=== PATIENT | female | born 1960 | race African-American/Black ===

== ENCOUNTER 2017-01-13 16:24 | Emergency (ER) | payer OTHER ==
[~2017-01-13] VITALS: Ht 170.2 cm; Wt 109.0 kg
[~2017-01-13 16:24] MED LIST: ABILIFY10 MG PO; ABILIFY15 MG PO; ADVAIR HFA120 INHALA IH; ADVIL200 MG PO; ALBUTEROL HFA IH; ALBUTEROL1.25 MG/3 IH; AMLODIPINE BESY10 MG PO; APRESOLINE50 MG PO; ASPIR 8181 M1 PO; CHOLESTROL MEDICINE; COLACE100 MG PO; DIGOXIN250 MCG PO; DIOVAN80 MG PO; DOCUSATE SODIU100 MG PO; DUONEB 2.5-0.5 M3 ML IH; Ecotrin PO; FLOVENT 44120 INHALA IH; HYDROCHLOROTHIA25 MG PO; K-DUR20 MEQ PO; LEVAQUIN500 MG PO; LEVOFLOXACIN750 MG PO; MEDROL DOSEPAK4 MG PO; Medrol Dosepak PO; NORCO 5/3251 TABLET PO; NORVASC10 MG PO; Norvasc PO; PERCOCET 5/31 TABLET PO; PRAVASTATIN SOD40 MG PO; PREDNISONE10 M1 PO; PREDNISONE20 MG PO; PREDNISONE5 MG PO; PROAIR HFA8.5 GM IH; PROVENTIL,2.5 MG/3 M IH; SPIRIVA RESPIMAT4 GM IH; VALSARTAN80 MG PO; VENTOLIN HFA18 GM IH; VISTARIL25 MG PO; Vytorin 10/20 PO; ZITHROMAX Z-PA250 MG PO; ZOLOFT100 MG PO; Zithromax PO
[2017-01-13 17:19] LABS: MCHC 32.1 G/DL (30.0-36.0); MCV 81.1 FL (83-99); PLATELET COUNT 191 K/uL (156-360); RBC DIS.WIDTH-CV 15.2 % (11.8-14.6); WHITE BLOOD COUNT 10.5 K/uL (4.1-10.2)
[2017-01-13 17:31] LABS: CHLORIDE 110 mEq/L (99-109); POTASSIUM 3.8 mEq/L (3.7-5.4); SODIUM 139 mEq/L (136-147)
[2017-01-13 17:33] LABS: GLUCOSE 96 mg/dL (70-99)
[2017-01-13 17:34] LABS: ANION GAP 7 MEQ/L (2-14)
[2017-01-13 17:37] LABS: GFR ESTIMATE (CALCULATED) 47 mL/min/; UREA NITROGEN (BUN) 22 mg/dL (9-23)
[2017-01-13] MEDS ORDERED: PREDNISONE50 MG PO (18:19)
[2017-01-13] MEDS ORDERED: ZITHROMAX Z-PA250 MG PO (18:19)
[2017-01-13 19:05] VITALS: BP 129/108
== END 2017-01-13 19:04 | disposition home or self-care (01) ==
LOC: EME 16:24
DX: J44.9 Chronic obstructive pulmonary disease, unspecified (principal); J40 Bronchitis, not specified as acute or chronic; Z85.118 Personal history of other malignant neoplasm of bronchus and lung; I10 Essential (primary) hypertension; Z79.82 Long term (current) use of aspirin; F17.200 Nicotine dependence, unspecified, uncomplicated
CPT/HCPCS: 71020; 80048; 85027; 93005; 94640; 99281; 99284; J7512

== ENCOUNTER 2017-02-07 09:14 | Emergency (ER) | payer OTHER ==
[~2017-02-07] VITALS: Ht 170.2 cm; Wt 118.2 kg
[~2017-02-07 09:14] MED LIST changes: +PREDNISONE50 MG PO
[2017-02-07 10:41] LABS: MCH 26.2 PG (29.0-34.0); MCHC 32.5 G/DL (30.0-36.0); MCV 80.6 FL (83-99); MEAN PLAT.VOLUME 10.5 uM^3 (9.5-12.4); PLATELET COUNT 215 K/uL (156-360); RBC DIS.WIDTH-CV 15.8 % (11.8-14.6); RBC DIS.WIDTH-SD 45.8 % (39-53); RED BLOOD COUNT 4.96 M/uL (3.80-5.20); WHITE BLOOD COUNT 8.4 K/uL (4.1-10.2)
[2017-02-07 10:53] LABS: CHLORIDE 108 mEq/L (99-109); POTASSIUM 3.7 mEq/L (3.7-5.4); SODIUM 142 mEq/L (136-147)
[2017-02-07 10:55] LABS: GLUCOSE 117 mg/dL (70-99)
[2017-02-07 10:56] LABS: ANION GAP 11 MEQ/L (2-14)
[2017-02-07 10:59] LABS: GFR ESTIMATE (CALCULATED) 47 mL/min/
[2017-02-07 11:00] LABS: UREA NITROGEN (BUN) 21 mg/dL (9-23)
[2017-02-07 11:07] LABS: TROP-I INTERPRETATION NEGATIVE; TROPONIN-I < 0.01 ng/mL (0.0-0.30)
[2017-02-07] MEDS ORDERED: PERCOCET 5/31 TABLET PO (13:14)
[2017-02-07] MEDS ORDERED: LASIX20 MG PO (13:14)
[2017-02-07 13:35] VITALS: BP 138/73
== END 2017-02-07 13:36 | disposition home or self-care (01) ==
LOC: EME 09:14
PROVIDERS: Emergency Medicine
DX: R60.0 Localized edema (principal); J44.9 Chronic obstructive pulmonary disease, unspecified; K21.9 Gastro-esophageal reflux disease without esophagitis; E11.9 Type 2 diabetes mellitus without complications; Z85.118 Personal history of other malignant neoplasm of bronchus and lung; F17.200 Nicotine dependence, unspecified, uncomplicated; Z79.82 Long term (current) use of aspirin
CPT/HCPCS: 71020; 80048; 83880; 84484; 85027; 93005; 93971; 94640; 99281; 99284

== ENCOUNTER 2017-06-09 16:06 | Emergency (ER) | payer OTHER ==
[~2017-06-09] VITALS: Ht 170.2 cm; Wt 118.0 kg
[~2017-06-09 16:06] MED LIST changes: +LASIX20 MG PO
[2017-06-09 16:47] LABS: HEMATOCRIT 43.8 % (36.0-46.0); MCH 26.6 PG (29.0-34.0); MCHC 32.9 G/DL (30.0-36.0); MEAN PLAT.VOLUME 10.5 uM^3 (9.5-12.4); PLATELET COUNT 230 K/uL (156-360); RBC DIS.WIDTH-SD 44.1 % (39-53); RED BLOOD COUNT 5.41 M/uL (3.80-5.20); WHITE BLOOD COUNT 10.4 K/uL (4.1-10.2)
[2017-06-09 16:59] LABS: CHLORIDE 107 mEq/L (99-109); POTASSIUM 3.6 mEq/L (3.7-5.4); SODIUM 140 mEq/L (136-147)
[2017-06-09 17:00] LABS: GLUCOSE 99 mg/dL (70-99)
[2017-06-09 17:02] LABS: ANION GAP 10 MEQ/L (2-14)
[2017-06-09 17:04] LABS: GFR ESTIMATE (CALCULATED) > 59 mL/min/
[2017-06-09 17:05] LABS: UREA NITROGEN (BUN) 22 mg/dL (9-23)
[2017-06-09 17:10] LABS: TROP-I INTERPRETATION NEGATIVE; TROPONIN-I < 0.01 ng/mL (0.0-0.30)
[2017-06-09] MEDS ORDERED: MEDROL DOSEPAK4 MG PO (22:50)
[2017-06-09 22:53] VITALS: BP 168/91
== END 2017-06-09 23:03 | disposition left against medical advice (07) ==
LOC: EME 16:06
DX: J44.1 Chronic obstructive pulmonary disease with (acute) exacerbation (principal); R60.0 Localized edema; Z85.118 Personal history of other malignant neoplasm of bronchus and lung; K21.9 Gastro-esophageal reflux disease without esophagitis; E11.9 Type 2 diabetes mellitus without complications; F17.200 Nicotine dependence, unspecified, uncomplicated
CPT/HCPCS: 71020; 80048; 83880; 84484; 85027; 85379; 93005; 93971; 94640; 99281; 99284; J1100

== ENCOUNTER 2017-09-11 17:56 | Inpatient (IN) | payer OTHER ==
[~2017-09-11] VITALS: Ht 170.2 cm; Wt 124.5 kg
[~2017-09-11 17:56] MED LIST changes: -ZOLOFT100 MG PO; +ZOLOFT50 MG PO
[2017-09-11 18:58] LABS: HEMATOCRIT 39.1 % (36.0-46.0); HEMOGLOBIN 13.2 G/DL (11.9-15.5); MCH 27.6 PG (29.0-34.0); MCHC 33.8 G/DL (30.0-36.0); MCV 81.8 FL (83-99); PLATELET COUNT 185 K/uL (156-360); RBC DIS.WIDTH-CV 15.6 % (11.8-14.6); RBC DIS.WIDTH-SD 46.5 % (39-53); RED BLOOD COUNT 4.78 M/uL (3.80-5.20); WHITE BLOOD COUNT 9.8 K/uL (4.1-10.2)
[2017-09-11 19:11] LABS: CHLORIDE 107 mEq/L (99-109); POTASSIUM 3.5 mEq/L (3.7-5.4); SODIUM 140 mEq/L (136-147)
[2017-09-11 19:13] LABS: GLUCOSE 154 mg/dL (70-99)
[2017-09-11 19:17] LABS: CREATININE 1.3 mg/dL (0.6-1.3); GFR ESTIMATE (CALCULATED) 55 mL/min/
[2017-09-11 19:18] LABS: UREA NITROGEN (BUN) 17 mg/dL (9-23)
[2017-09-12 04:53] VITALS: BP 170/69
[2017-09-12 07:11] VITALS: BP 168/75
[2017-09-12] MEDS ORDERED: DULERA 100 MCG/13 GM IH (12:26)
[2017-09-12] MEDS ORDERED: NORVASC10 MG PO (12:27)
[2017-09-12] MEDS ORDERED: ERGOCALCIF50000 UNIT PO (12:27)
[2017-09-12] MEDS ORDERED: VISTARIL50 MG PO (12:28)
[2017-09-12 15:36] VITALS: BP 140/80
[2017-09-12 23:43] VITALS: BP 150/82
[2017-09-13 06:50] VITALS: BP 160/84
[2017-09-13 09:05] LABS: HEMOGLOBIN A1c (GLYCOHEMOGLOB) 6.9 % (Below 5.7)
[2017-09-13 22:55] VITALS: BP 123/72
[2017-09-14 06:54] LABS: HEMATOCRIT 41.4 % (36.0-46.0); HEMOGLOBIN 13.3 G/DL (11.9-15.5); MCH 26.6 PG (29.0-34.0); MCHC 32.1 G/DL (30.0-36.0); MCV 82.8 FL (83-99); PLATELET COUNT 187 K/uL (156-360); RBC DIS.WIDTH-CV 15.6 % (11.8-14.6); RBC DIS.WIDTH-SD 46.8 % (39-53); WHITE BLOOD COUNT 9.7 K/uL (4.1-10.2)
[2017-09-14 07:15] VITALS: BP 140/78
[2017-09-14 07:17] LABS: CHLORIDE 102 MEQ/L (99-109); CREATININE 1.2 MG/DL (0.6-1.3); GFR ESTIMATE (CALCULATED) > 59 mL/min/; GLUCOSE 151 mg/dL (70-99); POTASSIUM 3.8 MEQ/L (3.7-5.4); SODIUM 139 MEQ/L (136-147); UREA NITROGEN (BUN) 24 mg/dL (9-23)
[2017-09-14] MEDS ORDERED: PREDNISONE10 M1 PO (10:49)
[2017-09-14] MEDS ORDERED: FUROSEMIDE20 MG PO (10:49)
[2017-09-14] MEDS ORDERED: BENZONATATE100 MG PO (10:49)
[2017-09-14] MEDS ORDERED: INCRUSE ELLI62.5 MCG IH (10:49)
== END 2017-09-14 14:08 | disposition home or self-care (01) | DRG 190 ==
LOC: EME 17:56 → EDOF 09-12 02:48 → ENRESERV 09-12 02:49 → CANRESERV 09-12 02:49 → EDOF 09-12 03:22 → ENRESERV 09-12 03:23 → 5EAST 09-12 04:48 → ENPENDDIS 09-14 → 5EAST 09-14 14:08
PROVIDERS: Hospitalist; Physician Assistant; Physician Assistant Medical
DX: J44.1 Chronic obstructive pulmonary disease with (acute) exacerbation (principal); J96.01 Acute respiratory failure with hypoxia; I50.32 Chronic diastolic (congestive) heart failure; Z68.41 Body mass index [BMI] 40.0-44.9, adult; I11.0 Hypertensive heart disease with heart failure; I27.20 Pulmonary hypertension, unspecified; G47.33 Obstructive sleep apnea (adult) (pediatric); E11.9 Type 2 diabetes mellitus without complications; E66.01 Morbid (severe) obesity due to excess calories; K21.9 Gastro-esophageal reflux disease without esophagitis; F17.200 Nicotine dependence, unspecified, uncomplicated; E87.6 Hypokalemia; Z85.118 Personal history of other malignant neoplasm of bronchus and lung; Z90.2 Acquired absence of lung [part of]; Z82.49 Family history of ischemic heart disease and other diseases of the circulatory system
CPT/HCPCS: 71046; 71275; 80048; 82948; 83036; 83880; 85027; 87502; 93005; 94640; 94640 76; 94760; 94799; 99202; 99281; 99285; J1650; J1815; J1940; J3010; J7512; Q0177